=== PATIENT | male | born 1965 | race Caucasian/White ===

== ENCOUNTER 2021-12-08 23:58 | Emergency (ER) | payer SELFPAY ==
--- NOTE | 2021-12-09 00:19 | NUR ---
LEFT WITHOUT BEING SEEN
== END 2021-12-09 00:20 | disposition left against medical advice (07) ==
LOC: ER 12-09 00:05
DX: Z53.21 Procedure and treatment not carried out due to patient leaving prior to being seen by health care provider (principal)